=== PATIENT | female | born 1970 | race Caucasian/White ===

== ENCOUNTER 2019-09-07 02:15 | Emergency (ER) | payer BC ==
[~2019-09-07] VITALS: Ht 162.6 cm; Wt 102.1 kg
[2019-09-07] MEDS ORDERED: SYNTHROID50 MCG (02:29)
[2019-09-07] MEDS ORDERED: SPIRONOLACTONE50 MG PO (02:30)
[2019-09-07] MEDS ORDERED: GLUCOPHAGE500 MG PO (02:30)
[2019-09-07] MEDS ORDERED: SYNTHROID50 MCG PO (02:32)
[2019-09-07] MEDS ORDERED: PROAIR HFA8.5 GM (02:33)
[2019-09-07] MEDS ORDERED: FERROUSUL325 MG PO (02:54)
[2019-09-07] MEDS ORDERED: ASPIRIN81 MG PO (02:55)
[2019-09-07] MEDS ORDERED: TRAMADOL HCL50 MG PO (05:40)
[2019-09-07] MEDS ORDERED: DOXYCYCLINE HY100 MG PO (05:40)
== END 2019-09-07 05:59 | disposition home or self-care (01) ==
LOC: ED 02:15
DX: R10.30 Lower abdominal pain, unspecified (principal); I11.0 Hypertensive heart disease with heart failure; I50.9 Heart failure, unspecified; D64.9 Anemia, unspecified; E11.40 Type 2 diabetes mellitus with diabetic neuropathy, unspecified; G47.30 Sleep apnea, unspecified; F17.200 Nicotine dependence, unspecified, uncomplicated; Z88.8 Allergy status to other drugs, medicaments and biological substances; Z79.899 Other long term (current) drug therapy; Z79.82 Long term (current) use of aspirin; Z79.84 Long term (current) use of oral hypoglycemic drugs
CPT/HCPCS: 74177; 80053; 81001; 83690; 85025; 99284-25; J1885; J2405; Q9967

== ENCOUNTER 2019-11-20 10:28 | Emergency (ER) | payer OTHER ==
[~2019-11-20] VITALS: Ht 162.6 cm; Wt 102.1 kg
[~2019-11-20 10:28] MED LIST: ASPIRIN81 MG PO; DOXYCYCLINE HY100 MG PO; FERROUSUL325 MG PO; GLUCOPHAGE500 MG PO; PROAIR HFA8.5 GM; SPIRONOLACTONE50 MG PO; SYNTHROID50 MCG; SYNTHROID50 MCG PO; TRAMADOL HCL50 MG PO
--- NOTE | 2019-11-20 13:31 | EKG ---
[facility] [address] [facility] [place], [place] [address] Signed Normal sinus rhythm Low voltage QRS Left posterior fascicular block Cannot rule out Anterior infarct , age undetermined Abnormal ECG No previous ECGs available Confirmed by KG BRO MD ([id number]) on 11/20/2019 1:31:31 PM Electronically Signed By: KG BRO MD 11/20/19 1331 PATIENT NAME: BERNICEERICAVINNIE Electrocardiogram DATE OF : 72 PHYSICIAN: KG BRO MD REPORT #: [id number] REPORT IS CONFIDENTIAL AND NOT TO BE RELEASED WITHOUT AUTHORIZATION
== END 2019-11-20 13:35 | disposition home or self-care (01) ==
LOC: ED 10:28
DX: B34.9 Viral infection, unspecified (principal); J40 Bronchitis, not specified as acute or chronic; E11.9 Type 2 diabetes mellitus without complications; I11.0 Hypertensive heart disease with heart failure; I50.9 Heart failure, unspecified; D64.9 Anemia, unspecified; E11.40 Type 2 diabetes mellitus with diabetic neuropathy, unspecified; G47.30 Sleep apnea, unspecified; F17.200 Nicotine dependence, unspecified, uncomplicated; Z88.8 Allergy status to other drugs, medicaments and biological substances; Z79.899 Other long term (current) drug therapy; Z79.84 Long term (current) use of oral hypoglycemic drugs; Z79.82 Long term (current) use of aspirin
CPT/HCPCS: 71046; 80053; 83880; 84484; 84703; 85025; 93005; 93010; 94640; 99285-25